=== PATIENT | female | born 1985 | race African-American/Black ===

== ENCOUNTER 2017-05-25 10:58 | Emergency (ER) | payer OTHER ==
[2017-05-25 11:11] VITALS: BP 123/78; PULSE 77; TEMP 98.1; BMI 25.8
--- NOTE | 2017-05-25 12:01 | PDOC ---
History of Present Illness - General Chief Complaint: Vaginal Bleeding Stated Complaint: VAGINAL BLEEDING () Time Seen by Provider: 05/25/17 11:54 History Source: Patient - History of Present Illness Timing/Duration: reports: other (today) Quality: reports: cramping Past History - Past Medical History Allergies/Adverse Reactions: Allergies Allergy/AdvReac Type Severity Reaction Status Date / Time No Known Drug Allergies Allergy Verified 05/25/17 11:11 Home Medications: Ambulatory Orders RX: No Home Medications 0 dose .ROUTE UTDICT 02/14/14 Anemia: No Asthma: No Cancer: No Cardiac Disorders: No CVA: No COPD: No CHF: No Diabetes: No GI Disorders: No Disorders: No HTN: No Hypercholesterolemia: No Liver Disease: No Psychiatric Problems: Yes (ANXIETY, DEPRESSION.) Seizures: No Thyroid Disease: No - Suicide/Smoking/Psychosocial Hx Smoking Status: No Smoking History: Current every day smoker Have you smoked in the past 12 months: Yes Number of Cigarettes Smoked Daily: 10 If you are a former smoker, when did you quit?: 01/11 Information on smoking cessation initiated: Yes 'Breaking Loose' booklet given: 02/14/14 Hx Alcohol Use: Yes Drug/Substance Use Hx: No Substance Use Type: Alcohol Hx Substance Use Treatment: Yes Review of Systems - Review of Systems Constitutional: No: Chills, Fever ABD/GI: Yes: Abdominal cramping. No: Nausea, Vomiting : No: Dysuria *Physical Exam - Vital Signs Last Vital Signs Temp Pulse Resp BP Pulse Ox 98.1 F 77 19 123/78 99 05/25/17 11:09 05/25/17 11:09 05/25/17 11:09 05/25/17 11:09 05/25/17 11:09 - Physical Exam General Appearance: Yes: Appropriately Dressed. No: Apparent Distress HEENT: positive: Normal Voice Neck: positive: Supple Respiratory/Chest: negative: Respiratory Distress Female Pelvic Exam: positive: cervical os closed, normal adnexa, other (trace brown discharge, os closed). negative: CMT, adnexal tenderness Gastrointestinal/Abdominal: positive: Soft. negative: Tender Integumentary: positive: Dry, Warm Neurologic: positive: Fully Oriented, Alert, Normal Mood/Affect ED Treatment Course - RADIOLOGY Radiology Studies Ordered: Category Date Time Status TRANSVAGINAL US PREG [US] Stat Ultrasound 05/25/17 11:58 Ordered Medical Decision Making - Medical Decision Making 05/25/17 11:59 31-year-old female, , ~10 weeks by dates, has been on control but found out she was on home test 3 days ago, no care as of yet, presenting with some abdominal cramping and on and off vaginal spotting today. No dysuria, nausea, vomiting, fever or chills. See exam 1st trimester bleed R/o ectopic vs spon ab vs vag bleed of nl preg -T&S -ua -beta -US 05/25/17 14:10 Patient returns from ultrasound and requesting to be discharged. Does not want to wait for the results. Of note, Rh+ on labs. No signs of infection on UA. Pt states she is planning on seeing her OB tomorrow. Patient discharged. Told I will call her with ultrasound results and that she will need to follow up with her OB 05/25/17 14:13 05/25/17 14:14 05/25/17 14:40 US read as positive IUP consistent with approximately 9 weeks with cardiac activity. There is a trace subchorionic implantation bleed. I contacted patient and informed her of results. States she will come in to ED and orange picker copy of report to follow-up with her OB in the a.m. *DC/Admit/Observation/Transfer Diagnosis at time of Disposition: First-trimester bleeding - Discharge Dispostion Disposition: HOME Condition at time of disposition: Stable - Patient Instructions Additional Instructions: You have declined to wait for your ultrasound results. We will contact you once report is available and make further recommendations
[2017-05-25 13:02] LABS: URINE APPEARANCE CLEAR; URINE BILIRUBIN NEGATIVE (NEGATIVE); URINE BLOOD NEGATIVE (NEGATIVE); URINE COLOR YELLOW; URINE GLUCOSE (UA) NEGATIVE (NEGATIVE); URINE KETONE NEGATIVE (NEGATIVE); URINE NITRITE NEGATIVE (NEGATIVE); URINE PROTEIN NEGATIVE (NEGATIVE); URINE UROBILINOGEN NEGATIVE mg/dL (0.2-1.0)
[2017-05-25 17:44] LABS: URINE LEUK ESTERASE Negative (NEGATIVE)
== END 2017-05-25 15:00 | disposition home or self-care (01) ==
LOC: JER 10:58
DX: O20.8 Other hemorrhage in early pregnancy (principal); Z3A.10 10 weeks gestation of pregnancy
CPT/HCPCS: 36415; 76801-TC; 81003; 84702; 86850; 86900; 86901; 99282-25

== ENCOUNTER 2017-12-24 09:15 | Inpatient (IN) | payer OTHER ==
[2017-12-24 10:30] VITALS: BMI 32.2
[2017-12-24] MEDS ORDERED: BUTORPHANOL TARTRATE 1 MG/ML VIAL IVPB ONE (10:44)
[2017-12-24] MEDS ORDERED: PROMETHAZINE HCL 25 MG/1 ML VIAL IVPUSH ONE (10:44)
[2017-12-24] MEDS ORDERED: SODIUM PHOSPHATE/NA BIPHOS 133 ML ENEMA PR ONE (11:00)
[2017-12-24 11:30] LABS: BASO % 0.3 % (0-2.0); HEMATOCRIT 30.8 % (32.4-45.2); HEMOGLOBIN 10.4 GM/dL (10.7-15.3); LYMPH % 18.3 % (8-40); MCH 30.7 pg (25.7-33.7); MCHC 33.7 g/dl (32.0-36.0); MEAN PLT VOLUME 9.4 fl (7.5-11.1); MONO % 6.2 % (3.8-10.2); NEUT % 74.2 % (42.8-82.8); PLATELET COUNT 204 K/MM3 (134-434); RBC 3.38 M/mm3 (3.60-5.2); RDW 13.8 % (11.6-15.6); WHITE BLOOD COUNT 6.2 K/mm3 (4.0-10.0)
[2017-12-24 11:48] LABS: INR 1.04 (0.82-1.09); PROTHROMBIN TIME (PATIENT) 11.7 SEC (9.7-13.0)
[2017-12-24 11:50] LABS: ACTIVATED PTT 24.7 SECONDS (26.9-34.4)
[2017-12-24 11:58] LABS: ANION GAP 10 (8-16); BLOOD UREA NITROGEN 6 mg/dL (7-18); CALCIUM 8.4 mg/dL (8.5-10.1); CHLORIDE 106 mmol/L (98-107); CO2 23 mmol/L (21-32); CREATININE 0.7 mg/dL (0.55-1.02); GLUCOSE,RANDOM 144 mg/dL (74-106); POTASSIUM 3.6 mmol/L (3.5-5.1); SODIUM 139 mmol/L (136-145)
[2017-12-24] MEDS ORDERED: DINOPROSTONE 10 MG VAGINAL SUPPOSITORY VG ONE (12:00)
--- NOTE | 2017-12-24 13:56 | HP ---
Past Medical History - Primary Care Physician PCP:: Jacquelin Bradley - Admission Chief Complaint: 32 yrs G14, [id number], 40 weeks requests induction of labor . History of Present Illness: PNC at 2, [facility] wt gain 46 lbs work up : 06/14/17 O pos,Rpr nr, Hbsag neg, Rubella immune, Hiv neg, , pap ASCUS , Hpv HR pos, gc/ct neg 09/14/17 !hr gtt 155, rpr nr, Quantiferon neg 10/26/17 3 hr GTt 82/189/146/44 11/30/17 h/h 10.9/32.0, [id number], Gbs neg, hiv neg, gc/ct neg h/o early bleeding 05/25/17 9.4 weeks , edc assigned 12/24/17 09/10/17 25 weeks , ant placenta previa resolved 11/22/17 36.2/7 wks, , efw 2946gm, GINNY 12.6, ant placenta growth sono done by MFM. 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 01/2012 pap Hsil hr hpv pos . 04/07/12 Colposcopy in [facility] bx Hsil.11/08/12 hsil, hr hpv pos, trichomonas pos. . 06/26/14 lsil, hpv 16 pos 11/13/14 pap Hsil, Hr Hpv 16 pos . 11/20/14 Colpo Bx Hsil at [facility] . 06/26/14 lsil, Hpv 16 pos . 12/24/14 Cold Knife Cone bx hsil upto margins 04/16/15 post cone bx pap Cin2-3 06/14/17 pap Ascus hpv neg) ...: 14 ...Para: 4 ...Term: 4 ...: 0 ...Spon : 5 ...Induced : 4 ...Multiple Gestation: 0 ...LMP: 03/13/17 ... Weeks Gestation by Dates: 40.6 ...EDC by Dates: 12/18/17 ...EDC by Sono: 12/24/17 Additional OB History: [id number] ind ab. G2 06/17/2000 40 wks 6' [facility]. G3 2000 sp ab. G4 2000 Sp ab. G5 10/31/2002 40 wks , [facility] 8'10'. G6 2003 40 wks, [facility] 6'12". G7 2004 Ind ab. G7 2007 Ind ab. G9 2010 Sp ab. G10 07/2011 sp ab. G11 09/30/2012 40 wks 7'9" [facility]. G12 09/2106 Ind ab. G111/2016 Ind ab Heme/Onc: Yes: Anemia Infectious Disease: Yes: STD's (hr Hpv 16, 7 non 16/18 Hr hpv pos). No: AIDS, HIV, Tuberculosis Psych: Yes: Anxiety, Depression, Other (currently not on meds) Endocrine: No: Hyperthyroidism, Hypothyroidism - Past Surgical History Hx Myomectomy: No Hx Transabdominal Cerclage: No Additional Surgical History: h/o cold knife cone bx 12/24/2014 - Smoking History Smoking history: Current every day smoker Aproximately how many cigarettes per day: 10 (currently 2-3/day ) If you are a former smoker, when did you quit?: 01/11 - Alcohol/Substance Use Hx Alcohol Use: No History of Substance Use: reports: None Home Medications - Allergies Allergies/Adverse Reactions: Allergies Allergy/AdvReac Type Severity Reaction Status Date / Time latex Allergy Severe Hives Verified 12/24/17 10:05 No Known Drug Allergies Allergy Verified 12/24/17 10:05 - Home Medications Home Medications: Ambulatory Orders Vit Calc,Iron,Folic [ Vitamins] 1 each PO DAILY 12/18/17 Docusate Sodium [Colace] 100 mg PO 12/24/17 Ferrous Sulfate [Feosol] 325 mg PO DAILY 12/24/17 Physical Exam - Maternity Vital Signs: Vital Signs Temperature 98.4 F 12/24/17 10:17 Pulse Rate 88 12/24/17 12:00 Respiratory Rate 18 12/24/17 12:00 Blood Pressure 132/74 12/24/17 12:00 O2 Sat by Pulse Oximetry (%) Constitutional: Yes: Well Nourished, No Distress, Obese Eyes: Yes: WNL HENT: Yes: WNL, Normocephalic Neck: Yes: WNL Cardiovascular: Yes: WNL, Regular Rate and Rhythm Lungs: Clear to auscultation Breast(s): Yes: WNL - Abdominal Exam/OB Fundal Height: 40 Number of Fetuses: Single Presentation: Vertex Contractions: No Monitor Mode: External Heart Rate (range): 130 Heart Rate Location: [facility] Category: I Accelerations: Uniform Decelerations: None - Vaginal Exam/OB Vaginal Bleediing: No Speculum Exam: No Dilatation (cm): close Effacement (%): 30 % Amniotic Membrane Status: Intact Presentation: Vertex/Position Station: -3 - Physical Exam Musculoskeletal: Yes: WNL Extremities: Yes: WNL. No: Calf Tenderness Edema: Yes Edema: LLE: 1+, RLE: 1+ Integumentary: Yes: Tattoos Deep Tendon Reflex Grade: Normal +2 ...Motor Strength: WNL Psychiatric: Yes: WNL - Labs Lab Results: CBC, BMP 12/24/17 11:10 12/24/17 11:10 Laboratory Tests 12/24/17 12/24/17 12/24/17 11:10 11:10 11:10 PT with INR 11.70 INR 1.04 PTT (Actin FS) 24.7 L RPR Titer Nonreactive Blood Type O POSITIVE Antibody Screen Negative Problem List - Problems (1) 40 weeks gestation of Code(s): Z3A.40 - 40 WEEKS GESTATION OF (2) Elective induction of labor planned Code(s): [id number] - (3) Abnormal Pap smear of cervix Code(s): R87.619 - UNSP ABNORMAL CYTOLOG FINDINGS IN SPECMN FROM CERVIX UTERI Qualifiers: Abnormal Pap type: ASC-US Qualified Code(s): R87.610 - Atypical squamous cells of undetermined significance on cytologic smear of cervix (ASC-US) (4) Anemia Code(s): D64.9 - ANEMIA, UNSPECIFIED Qualifiers: Anemia type: iron deficiency Iron deficiency anemia type: inadequate dietary iron intake Qualified Code(s): D50.8 - Other iron deficiency anemias Assessment/Plan 32 yrs G14, p4 09 4 , 40 weeks gestation s/o cold knife cone Bx in 04/2015 ,s/p abn pap smears gbs neg , anemia Inductin of labor with Cervidi ( inserted at 1.40 pM Plan trial of vaginal delivery
[2017-12-24] MEDS: DEXTROSE 5%-LACTATED RINGERS 1,000 ML IV SCH (17:20)
[2017-12-25] MEDS: DEXTROSE 5%-LACTATED RINGERS 1,000 ML IV SCH ×2 (03:10→20:33)
[2017-12-25] MEDS ORDERED: OXYTOCIN 20 UNITS in 0.9% NS 20 UNIT/1,000 ML INFUS.BAG IV ONE (03:12)
[2017-12-25] MEDS ORDERED: OXYTOCIN 30 UNITS in 0.9% NS 30 UNIT/500 ML INFUS.BAG IVPB SCH (03:30)
--- NOTE | 2017-12-25 08:37 | PN ---
Progress Note (short form) - Note Progress Note: pt's cervidil was removed after 12 hrs of insertion by nurse Pitocin induction was started at 3.12 AM 8.00AM cx Ft/60 %?Vx -3/Mi/ FHR 145 cat-1 UC irregular 2-4 min, mild, pt unaware Selected Entries 12/25/17 05:00 Pulse Rate 67 Blood Pressure 124/[address] Pitocin induction Problem List - Problems (1) 40 weeks gestation of Code(s): Z3A.40 - 40 WEEKS GESTATION OF (2) Elective induction of labor planned Code(s): [id number] - (3) Abnormal Pap smear of cervix Code(s): R87.619 - UNSP ABNORMAL CYTOLOG FINDINGS IN SPECMN FROM CERVIX UTERI Qualifiers: Abnormal Pap type: ASC-US Qualified Code(s): R87.610 - Atypical squamous cells of undetermined significance on cytologic smear of cervix (ASC-US) (4) Anemia Code(s): D64.9 - ANEMIA, UNSPECIFIED Qualifiers: Anemia type: iron deficiency Iron deficiency anemia type: inadequate dietary iron intake Qualified Code(s): D50.8 - Other iron deficiency anemias
--- NOTE | 2017-12-25 11:11 | PN ---
Progress Note, Labor Vaginal Exam #1 Labor Exam Date: 12/25/17 Labor Exam Time: 11:00 Heart Rate (range): 145 Dilatation: 1 Effacement (%): 70 Amniotic Membrane Status: Intact Presentation: Vertex/Position Station: -3 (-3/-2) Remarks: uc 2-3 min , moderate FHR cat -1 Selected Entries 12/25/17 12/25/17 10:00 11:00 Temperature 98.7 F Pulse Rate 77 78 Blood Pressure 124/69 131/74 Vaginal Exam #2 Labor Exam Date: 12/25/17 Labor Exam Time: 16:10 Heart Rate (range): 140 Dilatation: 1 Effacement (%): 70 Amniotic Membrane Status: Intact Presentation: Vertex/Position Station: -3 Remarks: fhr cat-1 uc 2-3 min plan will stop pitocin at 6.00 pm, let the patient eat will restart after few hrs again. if uc stop completely , may consider 2nd cervidil Selected Entries 12/25/17 12/25/17 12/25/17 14:00 15:00 16:00 Temperature 98.2 F Pulse Rate 75 76 80 Blood Pressure 129/77 122/72 130/79
[2017-12-25] MEDS ORDERED: OXYTOCIN 30 UNITS in 0.9% NS 30 UNIT/500 ML INFUS.BAG IVPB ONE (23:59)
[2017-12-26] MEDS: DEXTROSE 5%-LACTATED RINGERS 1,000 ML IV SCH ×3 (00:30→10:45)
[2017-12-26] MEDS ORDERED: OXYTOCIN 30 UNITS in 0.9% NS 30 UNIT/500 ML INFUS.BAG IVPB SCH (00:30)
--- NOTE | 2017-12-26 05:49 | PN ---
Progress Note (short form) - Note Progress Note: s/p 12/24/17 cervidil for 12 hrs , followed by enema, shower, followed by Pitocin 12/25/17 for 14 hrs, cx remained 1 cm , 70 % , pt felt exhausted FHR tracing has been reassuring . ,uc were bet 2-4 min mild to moderate Pitocin was discontinued yesterday at 4.30pm Pitocin restarted at 12.30 AM 12/26/17 , 5.00;Am exam : cx 1 cm/soft/70 %/WI/Vx -3 Uc irregular 4-7 min , mild, , FHR 140 cat-1 Selected Entries 12/26/17 12/26/17 02:00 05:32 Temperature 98.2 F 98.7 F Pulse Rate 81 Blood Pressure 124/79 Imp : prolonged Latent phase labor 40.2 weeks , s/p cold knife cone bx , induction of labor, Plan Rebolledo balloon 30 cc inserted in cervix at 5.00AM continue induction with pitocin continue trial if vaginal delivery Problem List - Problems (1) 40 weeks gestation of Code(s): Z3A.40 - 40 WEEKS GESTATION OF (2) Elective induction of labor planned Code(s): [id number] - (3) Abnormal Pap smear of cervix Code(s): R87.619 - UNSP ABNORMAL CYTOLOG FINDINGS IN SPECMN FROM CERVIX UTERI Qualifiers: Abnormal Pap type: ASC-US Qualified Code(s): R87.610 - Atypical squamous cells of undetermined significance on cytologic smear of cervix (ASC-US) (4) Anemia Code(s): D64.9 - ANEMIA, UNSPECIFIED Qualifiers: Anemia type: iron deficiency Iron deficiency anemia type: inadequate dietary iron intake Qualified Code(s): D50.8 - Other iron deficiency anemias
[2017-12-26] MEDS ORDERED: BUTORPHANOL TARTRATE 1 MG/ML VIAL ONE ×2 (07:53)
[2017-12-26] MEDS ORDERED: PROMETHAZINE HCL 25 MG/1 ML VIAL ONE (07:54)
[2017-12-26] MEDS ORDERED: BUTORPHANOL TARTRATE 1 MG/ML VIAL IVPB ONE ×2 (10:00→10:30)
[2017-12-26] MEDS ORDERED: PROMETHAZINE HCL 25 MG/1 ML VIAL IVPB ONE (10:30)
--- NOTE | 2017-12-26 10:31 | PN ---
Progress Note (short form) - Note Progress Note: 10.00 AM , cx appears to be same 1cm, barahona balloon felt through os bulging out during uc , unable to determine cx dilatation properly,vx -3 fhr cat-1 , 120-130, UC are q 3-4 min s/p stadol 2 mg + phenrgan 25 mg iv stat given at 8.00 AM pitocin induction in progress Selected Entries 12/26/17 10:00 Temperature 98.2 F Pulse Rate 68 Blood Pressure 117/72 Problem List - Problems (1) 40 weeks gestation of Code(s): Z3A.40 - 40 WEEKS GESTATION OF (2) Elective induction of labor planned Code(s): [id number] - (3) Abnormal Pap smear of cervix Code(s): R87.619 - UNSP ABNORMAL CYTOLOG FINDINGS IN SPECMN FROM CERVIX UTERI Qualifiers: Abnormal Pap type: ASC-US Qualified Code(s): R87.610 - Atypical squamous cells of undetermined significance on cytologic smear of cervix (ASC-US) (4) Anemia Code(s): D64.9 - ANEMIA, UNSPECIFIED Qualifiers: Anemia type: iron deficiency Iron deficiency anemia type: inadequate dietary iron intake Qualified Code(s): D50.8 - Other iron deficiency anemias
--- NOTE | 2017-12-26 14:36 | PN ---
Progress Note (short form) - Note Progress Note: 2.30 Pm cx 1-2 cm/70%/vx -3/barahona balloon bukging through cx /WV FHR ca-1, 135 bpm UC irregular , 2-4-5 min pitocin 20 ml/hr Plan ct pitocin induction Selected Entries 12/26/17 14:00 Temperature 98.9 F Pulse Rate 67 Blood Pressure 120/73 Problem List - Problems (1) 40 weeks gestation of Code(s): Z3A.40 - 40 WEEKS GESTATION OF (2) Elective induction of labor planned Code(s): [id number] - (3) Abnormal Pap smear of cervix Code(s): R87.619 - UNSP ABNORMAL CYTOLOG FINDINGS IN SPECMN FROM CERVIX UTERI Qualifiers: Abnormal Pap type: ASC-US Qualified Code(s): R87.610 - Atypical squamous cells of undetermined significance on cytologic smear of cervix (ASC-US) (4) Anemia Code(s): D64.9 - ANEMIA, UNSPECIFIED Qualifiers: Anemia type: iron deficiency Iron deficiency anemia type: inadequate dietary iron intake Qualified Code(s): D50.8 - Other iron deficiency anemias
[2017-12-26] MEDS: ELECTROLYTE-148 SOLN 1,000 ML IV SCH ×2 (15:30→18:45)
[2017-12-26] MEDS ORDERED: ELECTROLYTE-148 SOLN 500 ML IV ONE (18:00)
--- NOTE | 2017-12-26 19:01 | PN ---
Progress Note (short form) - Note Progress Note: 6.50 PM, cx exam same 1 cm/70 %/vx-3 barahona cathter removed from cervix, same findings uc mild to moderate , q3-4 min, FHR 140 bpm reactive, cat-1 IMP 40.2 weeks , Failed induction of labor s/p cervidil, pitocin & barahona balloon induction Plan Stop pitoci Delivery by primary LFTC/Section Selected Entries 12/26/17 12/26/17 12/26/17 16:00 17:00 18:00 Temperature 98.3 F Pulse Rate 72 73 77 Blood Pressure 131/76 125/79 131/81 preop consent taken r/b/a explained barahona cathterflorencio Problem List - Problems (1) 40 weeks gestation of Code(s): Z3A.40 - 40 WEEKS GESTATION OF (2) Elective induction of labor planned Code(s): [id number] - (3) Abnormal Pap smear of cervix Code(s): R87.619 - UNSP ABNORMAL CYTOLOG FINDINGS IN SPECMN FROM CERVIX UTERI Qualifiers: Abnormal Pap type: ASC-US Qualified Code(s): R87.610 - Atypical squamous cells of undetermined significance on cytologic smear of cervix (ASC-US) (4) Anemia Code(s): D64.9 - ANEMIA, UNSPECIFIED Qualifiers: Anemia type: iron deficiency Iron deficiency anemia type: inadequate dietary iron intake Qualified Code(s): D50.8 - Other iron deficiency anemias (5) Failed induction of labor Code(s): O61.9 - FAILED INDUCTION OF LABOR, UNSPECIFIED Qualifiers: Failed induction of labor type: medical Qualified Code(s): O61.0 - Failed medical induction of labor
[2017-12-26] MEDS ORDERED: CITRIC ACID/SODIUM CITRATE 30 ML UNIT-DOSE CUP PO ONE (19:15)
[2017-12-26] MEDS ORDERED: morphine SULFATE/Preservative Free 0.5 MG/ML (1cc Syringe) ONE (19:48)
[2017-12-26] MEDS ORDERED: ceFAZolin SODIUM 1 GM VIAL ONE (19:50)
[2017-12-26] MEDS ORDERED: PHENYLEPHRINE HCL 10 MG/1 ML SINGLE DOSE VIAL ONE (20:05)
[2017-12-26] MEDS ORDERED: BUPIVACAINE 0.75% IN DEXTROSE/PF 2ML AMPULE NR ONE (20:06)
[2017-12-26] MEDS ORDERED: OXYTOCIN 10 UNITS/ML VIAL ONE (20:21)
[2017-12-26] MEDS ORDERED: IBUPROFEN 800 MG/8 ML IJ IVPB PRN (21:12)
[2017-12-26] MEDS ORDERED: OXYTOCIN 20 UNITS in 0.9% NS 20 UNIT/1,000 ML INFUS.BAG IV ONE (21:12)
[2017-12-26] MEDS ORDERED: ONDANSETRON 4 MG/2 ML VIAL IVPUSH PRN (21:13)
[2017-12-26] MEDS ORDERED: METHYLERGONOVINE MALEATE 0.2 MG/1 ML AMP IM PRN (21:36)
--- NOTE | 2017-12-26 21:54 | OP ---
Operative Note - Note: Operative Date: 12/26/17 Pre-Operative Diagnosis: 40.2 weeks, failed induction of labor s/p cold knife cone Biopsy Operation: Primary LFTC/section Findings: TOB 8.31 PM / 9/9, wt 8'3"/ht 20.1/2 , ROT position , Baby Girl both tubes & ovaries normal placenta ant lo . Dr Ruiz reference data expert present in the room Surgeon: Jacquelin Bradley [employer] Salesperson: Safia Bee Anesthesiologist/DONOR SERVICES TEAM LEADER: Barry Chaudhari Anesthesia: Spinal Specimens Removed: cord segment for cord blood gas. cord blood. placenta Estimated Blood Loss (mls): 800 Drains, Volume Out (mls): 175 (uli color, barahona out put ) Fluid Volume Replaced (mls): 1,800 Operative Report Dictated: Yes
[2017-12-26 22:03] LABS: ARTERIAL BLOOD GAS BASE EXCESS -0.8 meq/l (-2-2); ARTERIAL BLOOD GAS PCO2 38.4 mmHg (35-45); ARTERIAL BLOOD GAS pH 7.4 (7.35-7.45)
--- NOTE | 2017-12-26 22:05 | PN ---
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 pnc at , [facility] Gbs neg h/o cold knife cone Biopsy 201412/24/17 Cervidil insertion 12/25/17 Pitocin induction 12/26/17 Barahona Balloon insertion, Pitocin induction . 12/25/17 & 12/26/17 rx stadol + phenrgan dose , total 2 dose for analgesia No change in Cx Dilatation beyond 1cm/70 5 effacement INDICATION ; 40.2 weeks, Failed Induction of labor , s/p cold knife cone bx 2 gm IV Ancef prior to incision . Intraop Im Methergine 0.2 mg prophylactically given Intraop course uneventful
[2017-12-26 22:08] LABS: ARTERIAL BLD GAS O2 SATURATION 69.2 % (90-98.9); ARTERIAL BLOOD GAS PO2 30.4 mmHg (80-100); VENOUS PC02 43.2 mmHg (38-52); VENOUS PH 7.37 (7.32-7.42); VENOUS PO2 28.5 mmHg (28-48)
--- NOTE | 2017-12-26 23:01 | OP ---
DATE OF OPERATION: 12/26/2017 PREOPERATIVE DIAGNOSIS: A 40.2 week gestation, failed induction of labor. POSTOPERATIVE DIAGNOSIS: A 40.2 week gestation, failed induction of labor. OPERATION: Primary low transverse section. SURGEON: Jacquelin Bradley MD GUEST SERVICES MANAGER SURGEON: Safia Bee MD ANESTHESIOLOGIST: Barry Chaudhari MD ANESTHESIA: Spinal. FINDINGS: This is a 32-year-old 14, para 4-0-9-4, EDC December 24, 2017, insists on induction of labor. Cervidil induction on December 24, 2017. Pitocin induction on December 25. On December 26, Pitocin induction and Rebolledo balloon. There was no change in cervix dilation beyond 1 cm, 70% effacement and hence the patient is taken for section procedure. The patient has a history of a cold knife cone biopsy done in 2014. PROCEDURE: Patient is taken to the operating room table and Rebolledo catheter was placed. Abdomen was shaved, prepped, and spinal anesthesia was given. Patient was placed in the supine position and abdomen was painted with betadine and draped in the usual manner. Pfannenstiel incision was made in the skin and subcutaneous tissue. The anterior rectus sheath was incised transversely. Bleeding points were clamped and cauterized. Rectus muscle was from the rectus sheath. Parietal peritoneum was opened vertically. Lower part of the bladder peritoneum was identified and it was opened transversely. The lower uterine segment was incised transversely and amniotic fluid was clear. The baby girl was delivered from the OP position at 8:31 p.m. Cord was clamped, cut, and cord blood was collected. Cord segment before that was submitted for cord blood gasses. The placenta was removed completely with the membranes. Baby girl 's were 9 and 9, weight is 8 pounds 3 ounces. The uterine cavity was cleaned and the uterine incision was closed in 2 layers. The first layer was closed with a continuous locking suture with Biosyn 0 suture. The second layer was a continuous intermittent locking with a Biosyn 0 suture. Hemostasis was verified and then the bladder peritoneum was also closed with Biosyn 0 suture. Hemostasis checked in the incision area. Both tubes and ovaries were normal. Irrigation was done. Sponge, instrument, and needle count was correct. Closure of the abdomen was done. Parietal peritoneum was closed with Biosyn 0 suture. Muscles were approximated together with Vicryl 0 suture and intermittent sutures were taken. The anterior rectus sheath was closed with 0 Vicryl continuous sutures. Hemostasis was checked underneath the rectus sheath before its closure. Subcutaneous tissue: Hemostasis was noted. Irrigation was done. Subcutaneous tissue was approximated with Biosyn 0 suture with interrupted suture. The skin was closed with intradermal sutures with 3-0 Vicryl and a straight needle. Steri-Strips were applied. Pressure dressing given. Patient tolerated the procedure well. The blood clots were removed from the vagina. She received 2 g of IV Ancef prior to the incision. Estimated blood loss was 800 mL. Intraoperative urine output was 175 mL. IV fluid infusion was 1200 mL. Jaciel [id number]
[2017-12-27] MEDS ORDERED: DEXTROSE 5%-WATER - 50 ML IVPB ONE ×3 (01:28→16:49)
[2017-12-27] MEDS ORDERED: ceFAZolin SODIUM 1 GM VIAL ONE ×3 (01:28→16:49)
[2017-12-27] MEDS: IBUPROFEN 800 MG/8 ML IJ IVPB PRN ×3 (01:33→13:38)
[2017-12-27] MEDS: CEFAZOLIN 1 GM in DEXTROSE 5%-WATER - 50 ML IVPB SCH ×3 (01:34→17:36)
[2017-12-27] MEDS: OXYTOCIN 20 UNITS in 0.9% NS 20 UNIT/1,000 ML INFUS.BAG IV SCH ×3 (01:35→22:54)
[2017-12-27] MEDS ORDERED: PNEUMOCOCCAL 23 VACCINE 0.5 ML VIAL IM ONE (05:00)
[2017-12-27 07:22] LABS: BASO % 0.4 % (0-2.0); EOS % 0.6 % (0-4.5); HEMATOCRIT 28.3 % (32.4-45.2); HEMOGLOBIN 9.6 GM/dL (10.7-15.3); LYMPH % 11.2 % (8-40); MCH 31.3 pg (25.7-33.7); MEAN CELL VOLUME 92.1 fl (80-96); MEAN PLT VOLUME 9.2 fl (7.5-11.1); MONO % 7.6 % (3.8-10.2); NEUT % 80.2 % (42.8-82.8); PLATELET COUNT 175 K/MM3 (134-434); RBC 3.08 M/mm3 (3.60-5.2); RDW 14.2 % (11.6-15.6); WHITE BLOOD COUNT 9.2 K/mm3 (4.0-10.0)
[2017-12-27] MEDS: SIMETHICONE 80 MG TAB.CHEW (FP) PO PRN ×3 (08:05→21:09)
--- NOTE | 2017-12-27 08:45 | PN ---
Progress Note (short form) - Note Progress Note: Post op day#1.S/P C section under spinal anesthesia with duramorph uneventful.Patient stable and has little pain for which she is on medication.No any anesthesia related problem.Patient DC from the anesthesia care.
--- NOTE | 2017-12-27 08:55 | PN ---
Post Progress Note - Subjective Subjective: c/o pain scale 8-9/, before pain meds c/o itching . cramps Post Day: 1 Type of Delivery: Primary C/S Vital Signs: Vital Signs Temperature 98.3 F 12/27/17 06:00 Pulse Rate 80 12/27/17 06:00 Respiratory Rate 18 12/27/17 08:00 Blood Pressure 105/60 12/27/17 06:00 O2 Sat by Pulse Oximetry (%) 100 12/26/17 21:45 Breast Exam: Yes: Soft, Other (BF ). No: Engorged Uterus: Yes: Fundus Firm, Fundus below umbilicus Incision: Yes: Dressing dry and intact. No: Redness, Oozing Abdomen/GI: Yes: Abdomen soft (bs active ), Passing flatus, Tolerating PO ( clear liquids ). No: Abdominal Distention, Tender Lochia: Yes: Rubra Lochia, amount: Moderate Extremities: Yes: Calves non-tender Perineum: Yes: Intact Activity: Ambulating - Labs Labs: CBC WBC 9.2 K/mm3 (4.0-10.0) D 12/27/17 06:54 RBC 3.08 M/mm3 (3.60-5.2) L 12/27/17 06:54 Hgb 9.6 GM/dL (10.7-15.3) L 12/27/17 06:54 Hct 28.3 % (32.4-45.2) L 12/27/17 06:54 MCV 92.1 fl (80-96) 12/27/17 06:54 MCH 31.3 pg (25.7-33.7) 12/27/17 06:54 MCHC 34.0 g/dl (32.0-36.0) 12/27/17 06:54 RDW 14.2 % (11.6-15.6) 12/27/17 06:54 Plt Count 175 K/MM3 (134-434) 12/27/17 06:54 MPV 9.2 fl (7.5-11.1) 12/27/17 06:54 Neutrophils % 80.2 % (42.8-82.8) 12/27/17 06:54 Lymphocytes % 11.2 % (8-40) D 12/27/17 06:54 Monocytes % 7.6 % (3.8-10.2) 12/27/17 06:54 Eosinophils % 0.6 % (0-4.5) 12/27/17 06:54 Basophils % 0.4 % (0-2.0) 12/27/17 06:54 Nucleated RBC % 0 % (0-0) 12/27/17 06:54 Other Findings, Remarks: i/o 950/850 . Barahona in situ draining RS cta Problem List - Problems (1) 40 weeks gestation of Code(s): Z3A.40 - 40 WEEKS GESTATION OF (2) Elective induction of labor planned Code(s): NAG7448 - (3) Abnormal Pap smear of cervix Code(s): R87.619 - UNSP ABNORMAL CYTOLOG FINDINGS IN SPECMN FROM CERVIX UTERI Qualifiers: Abnormal Pap type: ASC-US Qualified Code(s): R87.610 - Atypical squamous cells of undetermined significance on cytologic smear of cervix (ASC-US) (4) Anemia Code(s): D64.9 - ANEMIA, UNSPECIFIED Qualifiers: Anemia type: iron deficiency Iron deficiency anemia type: inadequate dietary iron intake Qualified Code(s): D50.8 - Other iron deficiency anemias (5) Failed induction of labor Code(s): O61.9 - FAILED INDUCTION OF LABOR, UNSPECIFIED Qualifiers: Failed induction of labor type: medical Qualified Code(s): O61.0 - Failed medical induction of labor (6) delivery delivered Code(s): O82 - ENCOUNTER FOR DELIVERY WITHOUT INDICATION (7) examination following delivery Code(s): Z39.2 - ENCOUNTER FOR ROUTINE FOLLOW-UP Assessment/Plan s/p Primary c/section , stable Plan ct po care encourage deep breathing, ambulation, after barahona is d/chelsy encourage ambulation anemia, will start iron after meals started
[2017-12-27] MEDS: ENOXAPARIN NA (PORCINE) 40 MG/0.4 ML DISP.SYRIN SQ SCH (09:29)
[2017-12-27] MEDS: PRENATAL VITAMINS W/ FOLIC ACID TABLET (FP) PO SCH (09:29)
[2017-12-27] MEDS ORDERED: PNEUMOC 13-VAL CONJ-DIP CRM/PF 0.5 ML DISP.SYRIN IM ONE (10:00)
--- NOTE | 2017-12-27 13:42 | CON.PSY ---
Psychiatry Consult Chief Complaint: 32 yearold female, seen for psych evaluation> seen at [facility] psych clinic. Has been on xamax and Risperdone. Stopped medications in September. She intends to Breast feed the baby. Staff report appropriate behaviour. - Previous Psychiatric Treatment Outpatient: Less than 6 mos ago Inpatient: One prior admission - Previous Substance Abuse Treatment Outpatient: None Inpatient: None - Reason for Previous Treatment Reason for Previous Treatment: Major Depression - Current Medications Current Medications: Active Medications Acetaminophen (Tylenol -) 650 mg PO Q4H PRN PRN Reason: FEVER Bisacodyl (Dulcolax Suppository -) 10 mg RC DAILY PRN PRN Reason: CONSTIPATION Diphenhydramine HCl (Benadryl Injection -) 25 mg IVPUSH Q4H PRN PRN Reason: FOR ITCHING Last Admin: 12/27/17 08:06 Dose: 25 mg Enoxaparin Sodium (Lovenox -) 40 mg SQ DAILY [facility] Last Admin: 12/27/17 09:29 Dose: 40 mg Ferrous Sulfate (Feosol -) 325 mg PO BIDWM [facility] Cefazolin Sodium 1 gm/ (Dextrose) 50 mls @ 100 mls/hr IVPB Q8H-IV RUBY Stop: 12/28/17 01:59 Last Admin: 12/27/17 09:30 Dose: 100 mls/hr Oxytocin/Sodium Chloride (Normal Saline+20 Units Oxytocin -) 20 unit in 1,000 mls @ 125 mls/hr IV ASDIR RUBY Last Admin: 12/27/17 12:40 Dose: 125 mls/hr Ibuprofen (Motrin -) 600 mg PO Q4H PRN PRN Reason: PAIN LEVEL 1 - 3 Ibuprofen (Caldolor Injection -) 800 mg IVPB Q6H PRN PRN Reason: Pain - Pacu Stop: 12/27/17 20:15 Last Admin: 12/27/17 08:05 Dose: 800 mg Methylergonovine Maleate (Methergine Injection -) 0.2 mg IM Q4H PRN PRN Reason: Excessive Bleeding (L&D) Ondansetron HCl (Zofran Injection) 4 mg IVPUSH Q6H PRN PRN Reason: NAUSEA AND/OR VOMITING Oxycodone HCl (Roxicodone -) 5 mg PO Q4H PRN PRN Reason: PAIN LEVEL 4 - 6 Oxycodone HCl (Roxicodone -) 10 mg PO Q4H PRN PRN Reason: PAIN LEVEL 7 - 10 Pneumococcal Polyvalent Vaccine (Pneumovax -) 0.5 ml IM .ONCE ONE Stop: 12/28/17 10:01 Multivit/Folic Acid/Iron ( Vitamins (Sjr) -) 1 tab PO DAILY RUBY Last Admin: 12/27/17 09:29 Dose: 1 tab Senna/Docusate Sodium (Pericolace -) 2 tablet PO HS PRN PRN Reason: CONSTIPATION Simethicone (Mylicon -) 80 mg PO Q4H PRN PRN Reason: GAS Last Admin: 12/27/17 08:05 Dose: 80 mg - Allergies Allergies: Allergies Allergy/AdvReac Type Severity Reaction Status Date / Time latex Allergy Severe Hives Verified 12/24/17 10:05 adhesive tape Allergy Rash Verified 12/24/17 18:53 No Known Drug Allergies Allergy Verified 12/24/17 10:05 - Current Living Status Usual Living Arrangement: With Significant Other - Current Mental Status Evaluation Appearance: Well Groomed Attitude: Cooperative - Affect Affect: Full Range - Mood Mood: Euthymic - Speech/Language Expressive: Coherent - Psychomotor Activity Psychomotor Activity: Normal - Thought Process Thought Process: Intact - Thought Content Hallucinations: Absent Delusions: Absent - Self Perception Self Perception: No Impairment - Cognition Attention: Alert Orientation: Time Memory, Immediate Recall: Intact Memory, Short Term: 3/3 Memory, Remote with Promptin/3 - Concentration Serial Sevens Intact: No Simple Calculations Intact: No - Abstraction Proverb Interpretation: Intact Judgement: Intact - Insight Insight: Intact - Impulse Control Impulse Control: Good Control - Suicidal Ideation Suicidal Ideation: No - Homicidal Ideation Homicidal Ideation: No Assessment/Plan 1) No Psych meds now. 2) follow up at [facility] after discharge.
[2017-12-27] MEDS: ACETAMINOPHEN 325 MG TABLET (FP) PO PRN (21:09)
[2017-12-27] MEDS: oxyCODONE HCL 5 MG TABLET PO PRN (21:09)
[2017-12-27] MEDS: FERROUS SO4 325 MG TABLET (FP) PO SCH (21:09)
[2017-12-27] MEDS: SENNOSIDES/DOCUSATE COMBO (SENNA PLUS) TABLET (UD) PO PRN (21:12)
[2017-12-27] MEDS ORDERED: diphenhydrAMINE HCL 25 MG CAPSULE (FP) PO PRN (21:30)
[2017-12-27] MEDS ORDERED: BISACODYL 10 MG SUPP.RECT RC PRN (21:36)
[2017-12-28] MEDS: ACETAMINOPHEN 325 MG TABLET (FP) PO PRN ×5 (00:31→19:50)
[2017-12-28] MEDS: SIMETHICONE 80 MG TAB.CHEW (FP) PO PRN ×5 (00:31→19:49)
[2017-12-28] MEDS: oxyCODONE HCL 5 MG TABLET PO PRN ×4 (00:32→12:55)
[2017-12-28] MEDS: FERROUS SO4 325 MG TABLET (FP) PO SCH ×2 (07:37→18:02)
--- NOTE | 2017-12-28 07:46 | PN ---
Post Progress Note - Subjective Subjective: c/o pain scale 7-8 c/o itching bm not done Post Day: 2 Type of Delivery: Primary C/S Vital Signs: Vital Signs Temperature 98.7 F 12/27/17 22:00 Pulse Rate 68 12/27/17 22:00 Respiratory Rate 18 12/27/17 22:00 Blood Pressure 125/68 12/27/17 22:00 O2 Sat by Pulse Oximetry (%) 100 12/26/17 21:45 Breast Exam: Yes: Soft, Other (BF ). No: Engorged Uterus: Yes: Fundus Firm, Fundus below umbilicus, Non-tender Incision: Yes: Sutures intact. No: Redness, Oozing Abdomen/GI: Yes: Abdomen soft, Passing flatus, Tolerating PO (diet). No: Abdominal Distention, Tender Lochia: Yes: Rubra Lochia, amount: Moderate Extremities: Yes: Calves non-tender Perineum: Yes: Intact Activity: Ambulating - Labs Labs: CBC WBC 9.2 K/mm3 (4.0-10.0) D 12/27/17 06:54 RBC 3.08 M/mm3 (3.60-5.2) L 12/27/17 06:54 Hgb 9.6 GM/dL (10.7-15.3) L 12/27/17 06:54 Hct 28.3 % (32.4-45.2) L 12/27/17 06:54 MCV 92.1 fl (80-96) 12/27/17 06:54 MCH 31.3 pg (25.7-33.7) 12/27/17 06:54 MCHC 34.0 g/dl (32.0-36.0) 12/27/17 06:54 RDW 14.2 % (11.6-15.6) 12/27/17 06:54 Plt Count 175 K/MM3 (134-434) 12/27/17 06:54 MPV 9.2 fl (7.5-11.1) 12/27/17 06:54 Neutrophils % 80.2 % (42.8-82.8) 12/27/17 06:54 Lymphocytes % 11.2 % (8-40) D 12/27/17 06:54 Monocytes % 7.6 % (3.8-10.2) 12/27/17 06:54 Eosinophils % 0.6 % (0-4.5) 12/27/17 06:54 Basophils % 0.4 % (0-2.0) 12/27/17 06:54 Nucleated RBC % 0 % (0-0) 12/27/17 06:54 Problem List - Problems (1) 40 weeks gestation of Code(s): Z3A.40 - 40 WEEKS GESTATION OF (2) Elective induction of labor planned Code(s): QEK1788 - (3) Abnormal Pap smear of cervix Code(s): R87.619 - UNSP ABNORMAL CYTOLOG FINDINGS IN SPECMN FROM CERVIX UTERI Qualifiers: Abnormal Pap type: ASC-US Qualified Code(s): R87.610 - Atypical squamous cells of undetermined significance on cytologic smear of cervix (ASC-US) (4) Anemia Code(s): D64.9 - ANEMIA, UNSPECIFIED Qualifiers: Anemia type: iron deficiency Iron deficiency anemia type: inadequate dietary iron intake Qualified Code(s): D50.8 - Other iron deficiency anemias (5) Failed induction of labor Code(s): O61.9 - FAILED INDUCTION OF LABOR, UNSPECIFIED Qualifiers: Failed induction of labor type: medical Qualified Code(s): O61.0 - Failed medical induction of labor (6) delivery delivered Code(s): O82 - ENCOUNTER FOR DELIVERY WITHOUT INDICATION (7) examination following delivery Code(s): Z39.2 - ENCOUNTER FOR ROUTINE FOLLOW-UP Assessment/Plan stable [facility]
[2017-12-28] MEDS ORDERED: oxyCODONE HCL 5 MG TABLET PO PRN (08:00)
[2017-12-28] MEDS: PRENATAL VITAMINS W/ FOLIC ACID TABLET (FP) PO SCH (09:15)
[2017-12-28] MEDS: ENOXAPARIN NA (PORCINE) 40 MG/0.4 ML DISP.SYRIN SQ SCH (09:15)
[2017-12-28] MEDS ORDERED: PNEUMOCOCCAL 23 VACCINE 0.5 ML VIAL IM ONE (10:00)
[2017-12-28] MEDS: SENNOSIDES/DOCUSATE COMBO (SENNA PLUS) TABLET (UD) PO PRN (19:49)
[2017-12-28] MEDS: IBUPROFEN 600 MG TABLET (FP) PO PRN (19:53)
[2017-12-29] MEDS: SIMETHICONE 80 MG TAB.CHEW (FP) PO PRN ×2 (02:19→09:48)
[2017-12-29] MEDS: IBUPROFEN 600 MG TABLET (FP) PO PRN ×2 (02:20→09:51)
[2017-12-29] MEDS: ACETAMINOPHEN 325 MG TABLET (FP) PO PRN ×2 (02:21→09:48)
[2017-12-29 09:04] LABS: BASO % 0.3 % (0-2.0); EOS % 2.3 % (0-4.5); HEMATOCRIT 28.2 % (32.4-45.2); HEMOGLOBIN 9.5 GM/dL (10.7-15.3); LYMPH % 18.7 % (8-40); MCH 31.1 pg (25.7-33.7); MCHC 33.7 g/dl (32.0-36.0); MEAN CELL VOLUME 92.3 fl (80-96); MEAN PLT VOLUME 9.3 fl (7.5-11.1); MONO % 8.5 % (3.8-10.2); NEUT % 70.2 % (42.8-82.8); PLATELET COUNT 212 K/MM3 (134-434); RBC 3.05 M/mm3 (3.60-5.2); RDW 13.9 % (11.6-15.6); WHITE BLOOD COUNT 7.8 K/mm3 (4.0-10.0)
--- NOTE | 2017-12-29 09:19 | DS ---
Physical Exam-BRAND ADVISOR Vital Signs: Vital Signs Temperature 98.6 F 12/28/17 22:00 Pulse Rate 94 H 12/28/17 22:00 Respiratory Rate 18 12/28/17 22:00 Blood Pressure 136/72 12/28/17 22:00 O2 Sat by Pulse Oximetry (%) 100 12/26/17 21:45 Constitutional: Yes: Well Nourished, Obese, Pallor Eyes: Yes: WNL HENT: Yes: WNL, Normocephalic Neck: Yes: WNL, Supple Cardiovascular: Yes: WNL Respiratory: Yes: WNL, Regular, CTA Bilaterally Gastrointestinal: Yes: WNL, Normal Bowel Sounds, Soft, Abdomen, Obese. No: Distention Renal/: Yes: WNL, Other (voiding without difficulty). No: CVA Tenderness - Left, CVA Tenderness - Right ....Post : Yes: Uterus firm, Uterus non-tender, Moderate lochia rubra Breast(s): Yes: WNL (bf, breast not engorged) Musculoskeletal: Yes: WNL Extremities: Yes: WNL. No: Calf Tenderness Wound/Incision: Yes: Clean/Dry, Well Approximated, Sutures Intact, Steri Strips , Open to air. No: Reddened, Bleeding Neurological: Yes: WNL, Alert, Oriented ...Motor Strength: WNL Psychiatric: Yes: WNL Labs: CBC, BMP 12/29/17 08:00 12/24/17 11:10 Delivery - Delivery Section: Primary, Low Flap Transverse (indication ; 40.2 weeks failed induction of labor) Type of Anesthesia: Spinal Episiotomy/Laceration: None EBL (cc): 800 (barahona out put 175 ml uli color ) Delivery, Single - Stages of Labor Date 1st Stage Initiatied: 12/25/17 Time 1st Stage Initiated: 16:25 Date of Delivery: 12/26/17 Time of Delivery: 20:31 Time Placenta Delivered: 20:33 Placenta: Yes: Manual Removal, Uterine Exploration - Condition of Infant Clinical Analyst/Supervisor Delivery Department Present: Yes Name: Beverley Ruiz Gender: Female Weight: 8 lb 3 oz Position: Right, OT Total Hours ROM (Hrs/Mins): 2 min - 1 Minute Total Score: 9 5 Minutes Total Score: 9 - Feeding Plan Initial Plan: Elected not to breastfeed exclusively throughout hospitalization Remarks - Remarks Remarks: 32 yrs G14, P4,0 9 4 , 40 weeks, insisits in induction of labor . [facility] h/o cold knife cone Biopsy 201412/24/17 Cervidil insertion 12/25/17 Pitocin induction 12/26/17 Barahona Balloon insertion, Pitocin induction . 12/25/17 & 12/26/17 rx stadol + phenrgan dose , total 2 dose for analgesia No change in Cx Dilatation beyond 1cm/70 5 effacement INDICATION ; 40.2 weeks, Failed Induction of labor , s/p cold knife cone bx 2 gm IV Ancef prior to incision . Intraop Im Methergine 0.2 mg prophylactically given Intraop course uneventful post op course uneventful anemia counselled discharge today Discharge Summary Reason For Visit: LABOR INDUCTION Current Active Problems 40 weeks gestation of (Acute) Abnormal Pap smear of cervix (Acute) Anemia (Acute) delivery delivered (Acute) Elective induction of labor planned (Acute) Failed induction of labor (Acute) examination following delivery (Acute) Condition: Stable - Instructions Diet, Activity, Other Instructions: Post Instructions DIET: Continue good diet high in protein, calcium, and iron rich foods. Drink at least eight (8) glasses of water daily in addition to other fluids. ___ Regular diet MEDICATIONS: Continue vitamins and iron as previously directed. Motrin and Tylenol may be taken for minor discomfort. ACTIVITY: Mild to moderate exercise may be started in two (2) weeks. Take frequent rest periods. Resume normal activity after six (6) week check up. WOUND CARE OF OPERATIVE SITE: Continue use of perineal bottle until vaginal discharge stops. Keep area clean. Shower daily. Keep abdominal wound dry. Report any drainage or redness to physician. Tub baths, tampons and douches are not permitted for [address] Breast feeding & o Bottle feeding BREAST CARE: (For those that are not breast feeding): If engorgement occurs: Wear tight fitting bra. Take Tylenol or Motrin for pain. Apply cold packs (ice in bags to each breast ) FAMILY PLANNING: There are many control alternatives to pursue and they should be discussed at your first office visit. You may resume sexual activity after your six (6) week check up. (Remember, is not a contraceptive) NEXT PHYSICIAN APPOINTMENT: Be certain to call for a two (2) week appointment, unless otherwise directed. Call Clinic or got to Emergency Dept if you have any of the following: Heavy vaginal bleeding Painful urination Leg pain Unusual odor noted to vaginal bleeding High fever Red streaking noted on breast Referrals: Jacquelin Bradley MD [Staff Physician] - Disposition: HOME - Home Medications Comprehensive Discharge Medication List: Ambulatory Orders Vit Calc,Iron,Folic [ Vitamins] 1 each PO DAILY 12/18/17 Docusate Sodium [Colace] 100 mg PO DAILY 12/24/17 Ferrous Sulfate [Feosol] 325 mg PO DAILY 12/24/17 Acetaminophen [Tylenol .Regular Strength -] 500 mg PO Q4H PRN #30 tablet Ferrous Sulfate [Feosol] 325 mg PO BIDWM tab 12/28/17 Ibuprofen [Motrin -] 600 mg PO Q4H PRN #30 tablet 12/28/17 Vitamins (Sjr) - 1 tab PO DAILY tablet 12/28/17
[2017-12-29] MEDS: PRENATAL VITAMINS W/ FOLIC ACID TABLET (FP) PO SCH (09:47)
[2017-12-29] MEDS: FERROUS SO4 325 MG TABLET (FP) PO SCH (09:47)
[2017-12-29] MEDS: ENOXAPARIN NA (PORCINE) 40 MG/0.4 ML DISP.SYRIN SQ SCH (09:47)
[2017-12-29 11:31] VITALS: BP 130/80; PULSE 85; TEMP 98.7
--- NOTE | 2017-12-31 17:16 | PATH ---
Surgical Pathology Report Patient Name: ALAINA MONROE [facility]. Rec. #: [id number] /Age/Gender: 1985 (Age: 32) / F Account: [id number] Location: [facility] OBS/ELEVATOR CONDUCTOR Taken: 12/26/2017 Received: 12/28/2017 Reported: 12/31/2017 Physicians: Jacquelin Bradley M.D. Specimen(s) Received PLACENTA Clinical History , 40.2 weeks, x4 (, 11/02, 12/03, 10/12) History of anemia, history of depression/anxiety, failed induction of labor, Cervidil, Pitocin, Rebolledo catheter Final Diagnosis PLACENTA, SECTION: 506 g THIRD TRIMESTER PLACENTA WITH TRIVASCULAR UMBILICAL CORD, FOCAL INTRAPARENCHYMAL HEMORRHAGE (~10% OF PLACENTAL SURFACE), AND UNREMARKABLE PLACENTAL MEMBRANES. Electronically Signed Lakisha Christianson M.D. Gross Description The specimen is received fresh labeled placenta and is a 506 gram, 18.5 x 15.5 x 3.0 cm. placenta with attached membranes and umbilical cord. The attached membranes are garcia, translucent with focal opacities and insert marginally. The umbilical cord measures 15 cm. in length and averages 1.1 cm. in diameter. The cord inserts centrally. No true knots or strictures are identified. Cut surface of the umbilical cord reveals 3 vessels. The surface is turner-blue with minimal fibrin deposition and appropriate caliber vessels. The maternal surface is red-brown with focal defects. Sectioning reveals a 1.8 cm in greatest dimension hemorrhagic lesion. The remaining placental parenchyma is red-brown and spongy. Foreclosure Clerk sections are submitted in 4 cassettes as follows: 1-membrane and umbilical cord; 2-lesion; 3-4-full thickness sections of placenta. 12/30/2017 saudi12/30/2017
== END 2017-12-29 11:55 | disposition home or self-care (01) | DRG 540 ==
LOC: JLDR 09:15 → J3W 12-26 23:25
PROVIDERS: ADMIT Obstetrics & Gynecology; ATTEND Obstetrics & Gynecology
PROC: 10D00Z1 Extraction of Products of Conception, Low, Open Approach (ICD-10-PCS; principal; 2017-12-26)
DX: O61.0 Failed medical induction of labor (principal); O48.0 Post-term pregnancy; O99.214 Obesity complicating childbirth; E66.9 Obesity, unspecified; Z3A.40 40 weeks gestation of pregnancy; O99.02 Anemia complicating childbirth; D50.9 Iron deficiency anemia, unspecified; O99.344 Other mental disorders complicating childbirth; F32.9 Major depressive disorder, single episode, unspecified; Z68.32 Body mass index [BMI] 32.0-32.9, adult; Z37.0 Single live birth
CPT/HCPCS: 36415; 36600; 80048; 82803; 85025; 85610; 85730; 86593; 86850; 86900; 86901; 88307-TC; 90732; G0009

== ENCOUNTER 2018-12-28 05:35 | Inpatient (IN) | payer OTHER ==
[~2018-12-28 05:35] MED LIST: ELECTROLYTE-148 SOLN 1,000 ML IV SCH
[2018-12-28 07:09] VITALS: BMI 36.8
[2018-12-28] MEDS ORDERED: LIDOCAINE HCL 1% PRESERVATIVE FREE - 30ML VIAL ONE (07:40)
[2018-12-28] MEDS ORDERED: OXYTOCIN 20 UNITS in 0.9% NS 20 UNIT/1,000 ML INFUS.BAG IV ONE (07:40)
--- NOTE | 2018-12-28 07:53 | PN ---
Delivery - Delivery Vaginal Delivery: Spontaneous Episiotomy/Laceration: None EBL (cc): 300 Delivery, Single - Feeding Plan Initial Plan: Elected not to breastfeed exclusively throughout hospitalization Remarks - Remarks Remarks: Normal spontaneous vaginal delivery of a live infant girl over intact perineum. Nose / Oropharynx suctioned @ perineum. Cord clamped and cut. Baby handed to nurse. Placenta expelled spontaneously intact. Mother in stable condition
[2018-12-28] MEDS ORDERED: BISACODYL 10 MG SUPP.RECT RC PRN (07:57)
[2018-12-28] MEDS ORDERED: WITCH HAZEL 50% (TUCKS) 40 PAD/JAR PAD TP PRN (07:57)
[2018-12-28] MEDS ORDERED: METHYLERGONOVINE MALEATE 0.2 MG/1 ML AMP IM PRN (07:57)
[2018-12-28] MEDS ORDERED: BENZOCAINE 20% 57 GM BOTTLE TP PRN (07:57)
[2018-12-28] MEDS ORDERED: BENZOCAINE 28 GM HEMORRHOIDAL OINTMENT TP PRN (07:57)
--- NOTE | 2018-12-28 07:57 | HP ---
Past Medical History - Admission Chief Complaint: Labor pain History of Present Illness: 33 yo, @ 39.6 weeks gestation, EDC 12/29/18 with previous , admitted for labor pain. Upon admission she was 9cm dilated. History Source: Patient Limitations to Obtaining History: No Limitations - Past Medical History Gastrointestinal: Yes: Constipation, Hemorrhoids ...: 14 ...Para: 5 ...Term: 5 ...: 0 ...Spon : 4 ...Induced : 4 ...Multiple Gestation: 0 ...EDC by Sono: 12/29/18 Heme/Onc: Yes: Anemia Infectious Disease: Yes: STD's (hr Hpv 16, 7 non 16/18 Hr hpv pos). No: AIDS, HIV, Tuberculosis Psych: Yes: Anxiety, Depression, Other (currently not on meds) - Past Surgical History Past Surgical History: Yes: Hx Myomectomy: No Hx Transabdominal Cerclage: No - Smoking History Smoking history: Never smoked Have you smoked in the past 12 months: No Aproximately how many cigarettes per day: 10 (currently 2-3/day ) If you are a former smoker, when did you quit?: 01/11 - Alcohol/Substance Use Hx Alcohol Use: No History of Substance Use: reports: None - Social History History of Recent Travel: No Home Medications - Allergies Allergies/Adverse Reactions: Allergies Allergy/AdvReac Type Severity Reaction Status Date / Time latex Allergy Severe Hives Verified 12/28/18 07:22 adhesive tape Allergy Rash Verified 12/28/18 07:22 No Known Drug Allergies Allergy Verified 12/28/18 07:22 - Home Medications Home Medications: Ambulatory Orders Vitamins (Sjr) - 1 tab PO DAILY tablet 12/28/17 Ferrous Sulfate [Feosol] 325 mg PO DAILY 12/25/18 Review of Systems - Review of Systems Constitutional: reports: No Symptoms Eyes: reports: No Symptoms HENT: reports: No Symptoms Neck: reports: No Symptoms Cardiovascular: reports: No Symptoms Respiratory: reports: No Symptoms Gastrointestinal: reports: No Symptoms Genitourinary: reports: Pain Breasts: reports: No Symptoms Reported Musculoskeletal: reports: No Symptoms Integumentary: reports: No Symptoms Neurological: reports: No Symptoms Endocrine: reports: No Symptoms Hematology/Lymphatic: reports: No Symptoms Psychiatric: reports: No Symptoms Pain Intensity: 8 Physical Exam - Maternity Vital Signs: Vital Signs Temperature 98.1 F 12/28/18 06:52 Pulse Rate 74 12/28/18 06:52 Respiratory Rate 20 12/28/18 06:52 Blood Pressure 139/86 12/28/18 06:52 O2 Sat by Pulse Oximetry (%) Constitutional: Yes: Well Nourished Eyes: Yes: Conjunctiva Clear HENT: Yes: Atraumatic Neck: Yes: Supple Cardiovascular: Yes: Regular Rate and Rhythm Lungs: Clear to auscultation - Abdominal Exam/OB Number of Fetuses: Single Presentation: Vertex - Vaginal Exam/OB Dilatation (cm): 9 Effacement (%): 100 Amniotic Membrane Status: Ruptured Amniotic Fluid: Yes: Clear Presentation: Vertex/Position Station: -1 - Physical Exam Integumentary: Yes: WNL ...Motor Strength: WNL Psychiatric: Yes: Alert, Oriented Problem List - Problems (1) Pain during labor Code(s): O99.89 - OTH DISEASES AND CONDITIONS COMPL PREG/CHLDBRTH; R52 - PAIN, UNSPECIFIED Assessment/Plan Active labor Previous Admit for Anticipate
[2018-12-28] MEDS ORDERED: DEXTROSE 5%-LACTATED RINGERS 1,000 ML IV SCH (08:00)
[2018-12-28] MEDS ORDERED: OXYTOCIN 20 UNITS in 0.9% NS 20 UNIT/1,000 ML INFUS.BAG IV SCH (08:00)
[2018-12-28] MEDS: PRENATAL VITAMINS W/ FOLIC ACID TABLET (FP) PO SCH (10:26)
[2018-12-28] MEDS: FERROUS SO4 325 MG TABLET (FP) PO SCH ×2 (10:26→21:34)
[2018-12-28] MEDS: IBUPROFEN 600 MG TABLET (FP) PO PRN ×4 (10:26→23:51)
[2018-12-28] MEDS: ACETAMINOPHEN 325 MG TABLET (FP) PO PRN ×4 (10:27→23:51)
[2018-12-28 13:26] LABS: COCAINE, UR NEGATIVE ng/ml (CUTOFF=300); METHADONE, UR NEGATIVE ng/ml (CUTOFF=300); OPIATES, URI NEGATIVE ng/ml (CUTOFF=300); PHENCYCLIDINE,URINE NEGATIVE ng/ml (CUTOFF=25); URINE AMPHETAMINES NEGATIVE ng/ml (CUTOFF=500); URINE BARBITURATES NEGATIVE ng/ml (CUTOFF=200); URINE BENZODIAZEPINES NEGATIVE ng/ml (CUTOFF=200)
[2018-12-29 08:16] LABS: BASO % 0.3 % (0-2.0); EOS % 1.8 % (0-4.5); HEMATOCRIT 28.4 % (32.4-45.2); HEMOGLOBIN 9.6 GM/dL (10.7-15.3); LYMPH % 18.5 % (8-40); MCH 30.2 pg (25.7-33.7); MCHC 33.7 g/dl (32.0-36.0); MEAN CELL VOLUME 89.7 fl (80-96); MEAN PLT VOLUME 9.4 fl (7.5-11.1); MONO % 5.3 % (3.8-10.2); NEUT % 74.1 % (42.8-82.8); PLATELET COUNT 214 K/MM3 (134-434); RBC 3.17 M/mm3 (3.60-5.2); RDW 14.6 % (11.6-15.6); WHITE BLOOD COUNT 9.8 K/mm3 (4.0-10.0)
[2018-12-29] MEDS: PRENATAL VITAMINS W/ FOLIC ACID TABLET (FP) PO SCH (09:14)
[2018-12-29] MEDS: FERROUS SO4 325 MG TABLET (FP) PO SCH ×2 (09:14→22:35)
[2018-12-29] MEDS: IBUPROFEN 600 MG TABLET (FP) PO PRN ×3 (09:16→22:35)
[2018-12-29] MEDS: ACETAMINOPHEN 325 MG TABLET (FP) PO PRN ×3 (09:16→22:35)
--- NOTE | 2018-12-29 09:33 | PN ---
Post Progress Note - Subjective Subjective: No issues. Feeling well. Lochia c/w menses. No fevers/chills. Post Day: 1 Type of Delivery: Vital Signs: Vital Signs Temperature 98.1 F 12/29/18 06:00 Pulse Rate 77 12/29/18 06:00 Respiratory Rate 18 12/29/18 06:00 Blood Pressure 126/76 12/29/18 06:00 O2 Sat by Pulse Oximetry (%) 100 12/28/18 08:45 Uterus: Yes: Fundus below umbilicus Abdomen/GI: Yes: Abdomen soft Lochia: Yes: Rubra Lochia, amount: Small Extremities: Yes: Calves non-tender Activity: Ambulating - Labs Labs: CBC WBC 9.8 K/mm3 (4.0-10.0) 12/29/18 07:00 RBC 3.17 M/mm3 (3.60-5.2) L 12/29/18 07:00 Hgb 9.6 GM/dL (10.7-15.3) L 12/29/18 07:00 Hct 28.4 % (32.4-45.2) L 12/29/18 07:00 MCV 89.7 fl (80-96) 12/29/18 07:00 MCH 30.2 pg (25.7-33.7) 12/29/18 07:00 MCHC 33.7 g/dl (32.0-36.0) 12/29/18 07:00 RDW 14.6 % (11.6-15.6) 12/29/18 07:00 Plt Count 214 K/MM3 (134-434) 12/29/18 07:00 MPV 9.4 fl (7.5-11.1) 12/29/18 07:00 Absolute Neuts (auto) 7.2 K/mm3 (1.5-8.0) 12/29/18 07:00 Neutrophils % 74.1 % (42.8-82.8) 12/29/18 07:00 Lymphocytes % 18.5 % (8-40) 12/29/18 07:00 Monocytes % 5.3 % (3.8-10.2) 12/29/18 07:00 Eosinophils % 1.8 % (0-4.5) 12/29/18 07:00 Basophils % 0.3 % (0-2.0) 12/29/18 07:00 Nucleated RBC % 0 % (0-0) 12/29/18 07:00 Assessment/Plan 33yo s/p , PPD#1 Routine PP care Labs reviewed OOB, ambulate D/C to home tomorrow Nara Moseley MD
[2018-12-29] MEDS ORDERED: SENNOSIDES/DOCUSATE COMBO (SENNA PLUS) TABLET (UD) PO PRN (22:00)
[2018-12-30] MEDS: ACETAMINOPHEN 325 MG TABLET (FP) PO PRN (07:05)
[2018-12-30] MEDS: IBUPROFEN 600 MG TABLET (FP) PO PRN (07:06)
--- NOTE | 2018-12-30 08:08 | DS ---
Physical Exam-DEXTRINE MIXER Vital Signs: Vital Signs Temperature 98.2 F 12/29/18 22:00 Pulse Rate 73 12/29/18 22:00 Respiratory Rate 18 12/29/18 22:00 Blood Pressure 117/69 12/29/18 22:00 O2 Sat by Pulse Oximetry (%) 100 12/28/18 08:45 Constitutional: Yes: Well Nourished, No Distress, Calm Eyes: Yes: WNL, Conjunctiva Clear, EOM Intact HENT: Yes: WNL, Atraumatic, Normocephalic Neck: Yes: WNL, Supple, Trachea Midline Cardiovascular: Yes: WNL, Regular Rate and Rhythm Respiratory: Yes: WNL, Regular, CTA Bilaterally Gastrointestinal: Yes: WNL ...Rectal Exam: Yes: WNL Renal/: Yes: WNL ....Post : Yes: Uterus firm, Uterus non-tender, Slight lochia rubra Breast(s): Yes: WNL Musculoskeletal: Yes: WNL Extremities: Yes: WNL Edema: LLE: Trace, RLE: Trace Integumentary: Yes: WNL Neurological: Yes: WNL, Alert, Oriented ...Motor Strength: WNL Psychiatric: Yes: WNL, Alert, Oriented Labs: CBC, BMP 12/29/18 07:00 Delivery - Delivery Vaginal Delivery: Spontaneous Type of Anesthesia: None Episiotomy/Laceration: None EBL (cc): 300 Delivery, Single - Stages of Labor Date 1st Stage Initiatied: 12/28/18 Time 1st Stage Initiated: 00:00 Date 2nd Stage Initiated: 12/28/18 Time 2nd Stage Initiated: 07:20 Date of Delivery: 12/28/18 Time of Delivery: 07:41 Time Placenta Delivered: 07:45 Placenta: Yes: Spontaneous - Condition of Infant Principal Programmer/County Extension Agent Present: No Infant Gender: Female Weight: 8 lb 1 oz Total Hours ROM (Hrs/Mins): 2/45 - 1 Minute Total Score: 9 5 Minutes Total Score: 10 - Cades Feeding Plan Initial Plan: Elected not to breastfeed exclusively throughout hospitalization Discharge Summary Reason For Visit: LABOR ADMIT Current Active Problems Pain during labor (Acute) Procedures: Principal: Condition: Stable - Instructions Diet, Activity, Other Instructions: Regular Diet Follow up in the office for your Depo Provera shot either 12/30 or 01/02 Referrals: America Moseley MD [Staff Physician] - Disposition: HOME - Home Medications Comprehensive Discharge Medication List: Ambulatory Orders Vitamins (Sjr) - 1 tab PO DAILY tablet 12/28/17 Ferrous Sulfate [Feosol] 325 mg PO DAILY 12/25/18 Ferrous Sulfate [Feosol] 325 mg PO BID ud 12/29/18 Ibuprofen 600 mg PO Q6H PRN #30 tablet 12/29/18 Ibuprofen [Motrin -] 600 mg PO Q4H PRN tablet 12/29/18 Medroxyprogesterone Acetate [Depo-Provera] 150 mg IM ONCE #1 ml 12/29/18 Vitamins (Sjr) - 1 tab PO DAILY tablet 12/29/18
[2018-12-30] MEDS: FERROUS SO4 325 MG TABLET (FP) PO SCH (09:31)
[2018-12-30] MEDS: PRENATAL VITAMINS W/ FOLIC ACID TABLET (FP) PO SCH (09:31)
[2018-12-30 09:48] VITALS: BP 134/81; PULSE 67; TEMP 98.4
== END 2018-12-30 12:05 | disposition home or self-care (01) | DRG 560 ==
LOC: JLDR 05:35 → J3W 08:47 → JLDR 09:08 → J3W 09:41
PROVIDERS: ADMIT Obstetrics & Gynecology; ATTEND Obstetrics & Gynecology
PROC: 10E0XZZ Delivery of Products of Conception, External Approach (ICD-10-PCS; principal; 2018-12-28)
DX: O34.211 Maternal care for low transverse scar from previous cesarean delivery (principal); O26.893 Other specified pregnancy related conditions, third trimester; F41.9 Anxiety disorder, unspecified; Z3A.39 39 weeks gestation of pregnancy; Z37.0 Single live birth; Z87.891 Personal history of nicotine dependence
CPT/HCPCS: 36415; 59409; 71046-TC-FY; 80307; 85025

== ENCOUNTER 2022-07-06 09:12 | Emergency (ER) | payer OTHER ==
[2022-07-06 09:21] VITALS: BP 127/82; PULSE 87; RESP 18; TEMP 99; BMI 28.1
[2022-07-06] MEDS ORDERED: ACETAMINOPHEN 1000 MG/100 ML BAG IVPB ONE (09:33)
[2022-07-06] MEDS ORDERED: SODIUM CHLORIDE 0.9% 500 ML INFUS.BAG IV ONE (09:33)
[2022-07-06] MEDS ORDERED: DEXAMETHASONE SOD PHOSPHATE 10 MG/1 ML VIAL IVPUSH ONE (09:36)
[2022-07-06] MEDS ORDERED: DEXAMETHASONE SOD PHOSPHATE 10 MG/1 ML VIAL ONE (10:07)
[2022-07-06] MEDS ORDERED: ACETAMINOPHEN INJECTION 100 ML IVPB ONE (10:07)
[2022-07-06] MEDS ORDERED: ALBUTEROL SO4 2.5/IPRATROPIUM 0.5 INH SOL 3 ML VIAL.NEB. NEB ONE (10:07)
[2022-07-06] MEDS ORDERED: ALBUTEROL SO4 HFA INHALER IH ONE (10:23)
[2022-07-06 11:12] LABS: BASO % 0.7 % (0-2.0); EOS % 0.1 % (0-4.5); HEMOGLOBIN 14.3 GM/dL (10.7-15.3); LYMPH % 5.2 % (8-40); MCH 30.8 pg (25.7-33.7); MCHC 33.9 g/dl (32.0-36.0); MEAN CELL VOLUME 90.6 fl (80-96); MEAN PLT VOLUME 8.7 fl (7.5-11.1); MONO % 13.4 % (3.8-10.2); NEUT % 80.6 % (42.8-82.8); PLATELET COUNT 262 10^3/uL (134-434); RBC 4.63 M/mm3 (3.60-5.2); RDW 14.4 % (11.6-15.6); WHITE BLOOD COUNT 5.8 K/mm3 (4.0-10.0)
[2022-07-06] MEDS: ALBUTEROL SO4 2.5/IPRATROPIUM 0.5 INH SOL 3 ML VIAL.NEB. NEB SCH ×2 (11:15→11:16)
[2022-07-06 11:36] LABS: ALBUMIN 3.8 g/dl (3.4-5.0); CALCIUM 9.2 mg/dL (8.5-10.1)
[2022-07-06 11:39] LABS: CREATININE 1.2 mg/dL (0.55-1.3)
[2022-07-06 11:41] LABS: BILIRUBIN,TOTAL 0.6 mg/dL (0.2-1); TOT PROT 7.8 g/dl (6.4-8.2)
[2022-07-06 11:42] LABS: LACTIC ACID 3.3 mmol/L (0.4-2.0)
[2022-07-06 12:07] LABS: BLOOD UREA NITROGEN 11.2 mg/dL (7-18)
[2022-07-06 12:08] LABS: EPI CELLS 19 /uL (0-25.1); HCG,QUALITATIVE URINE Negative; HYALINE CASTS 1 /uL (0-3.1); PH,URINE 5.5 (5.0-8.0); URINE APPEARANCE CLEAR; URINE BACTERIA 10 /uL (0-1359); URINE BILIRUBIN NEGATIVE (NEGATIVE); URINE COLOR YELLOW; URINE GLUCOSE (UA) NEGATIVE (NEGATIVE); URINE KETONE NEGATIVE (NEGATIVE); URINE LEUK ESTERASE TRACE (NEGATIVE); URINE NITRITE NEGATIVE (NEGATIVE); URINE PROTEIN TRACE (NEGATIVE); URINE RBC 35 /uL (0-23.9); URINE WBC 69 /uL (0-25.8)
== END 2022-07-06 15:51 | disposition home or self-care (01) ==
LOC: JER 09:12
PROC: 3E033GC Introduction of Other Therapeutic Substance into Peripheral Vein, Percutaneous Approach (ICD-10-PCS; principal; 2022-07-06)
PROC: 3E0F7GC Introduction of Other Therapeutic Substance into Respiratory Tract, Via Natural or Artificial Opening (ICD-10-PCS; 2022-07-06)
DX: J11.1 Influenza due to unidentified influenza virus with other respiratory manifestations (principal); J45.909 Unspecified asthma, uncomplicated; R10.31 Right lower quadrant pain
CPT/HCPCS: 0241U-QW; 36415; 71046-TC-FY; 74177-TC; 76830-TC; 80053; 81003; 83605; 84703; 85025; 87086; 99285-25; J1100; Q9967

== ENCOUNTER 2024-12-02 09:36 | Emergency (ER) | payer OTHER ==
[2024-12-02 09:45] VITALS: BP 133/83; PULSE 74; RESP 18; TEMP 98.4; BMI 34.0
[2024-12-02] MEDS ORDERED: KETOROLAC TROMETHAMINE 30 MG/1 ML VIAL ONE (11:42)
[2024-12-02] MEDS ORDERED: diazePAM 5 MG TABLET ONE (11:42)
[2024-12-02] MEDS: ACETAMINOPHEN 500 MG TABLET (FP) PO ONE (11:43)
[2024-12-02] MEDS ORDERED: ACETAMINOPHEN 500 MG TABLET (FP) ONE (11:43)
[2024-12-02] MEDS: KETOROLAC TROMETHAMINE 30 MG/1 ML VIAL IM ONE (11:43)
[2024-12-02] MEDS: diazePAM 5 MG TABLET PO ONE (11:44)
[2024-12-02 12:27] LABS: HIV INTERPRETATION NEGATIVE (NEGATIVE)
[2024-12-02 12:28] LABS: HCV DIAGNOSTIC IN-HOUSE W/RFLX NON-REACTIVE (NONREACTIVE)
== END 2024-12-02 16:15 | disposition home or self-care (01) ==
LOC: JERFT 09:36
PROC: 3E0233Z Introduction of Anti-inflammatory into Muscle, Percutaneous Approach (ICD-10-PCS; principal; 2024-12-02)
DX: M54.50 Low back pain, unspecified (principal); M54.6 Pain in thoracic spine; M54.2 Cervicalgia; V43.02XA Car driver injured in collision with other type car in nontraffic accident, initial encounter; Y92.410 Unspecified street and highway as the place of occurrence of the external cause
CPT/HCPCS: 36415; 72128-TC; 72131-TC; 84703; 86803; 87389; 99284-25